=== PATIENT | female | born 1985 | race Caucasian/White ===

== ENCOUNTER 2024-03-30 02:33 | Emergency (ER) | payer OTHER ==
[~2024-03-30] VITALS: Ht 154.9 cm; Wt 76.7 kg
[2024-03-30] MEDS ORDERED: Dexamethasone Sodium Phospha 20 MG/5 ML VIAL IM ONE (03:05)
[2024-03-30] MEDS ORDERED: PREDNISONE50 MG PO (06:11)
== END 2024-03-30 06:51 | disposition home or self-care (01) ==
LOC: ED 02:33
DX: M06.862 Other specified rheumatoid arthritis, left knee (principal); M06.871 Other specified rheumatoid arthritis, right ankle and foot; Z88.6 Allergy status to analgesic agent

== ENCOUNTER 2024-05-11 21:44 | Emergency (ER) | payer OTHER ==
[~2024-05-11 21:44] MED LIST: PREDNISONE50 MG PO
[2024-05-11 23:09] LABS: BASO % 0.2 % (0.0-1.0); EOS # 0.1 10*3/uL (0.0-0.4); EOS % 0.4 % (1.0-4.0); HEMATOCRIT 42.5 % (37.0-47.0); MEAN CORPUSCULAR HGB 31.2 pg (27.0-31.0); MEAN CORPUSCULAR HGB CONC 33.9 g/dl (33.0-37.0); MEAN PLATELET VOLUME 10.2 fl (9.6-12.3); MONO # 0.5 10*3/uL (0.1-1.0); MONO % 4.2 % (3.0-9.0); NEUT # 9.9 10*3/uL (2.3-7.9); NEUT % 80.2 % (47.0-73.0); PLATELET COUNT AUTOMATED 338 10*3/uL (130-400); RED BLOOD COUNT 4.62 10*6/uL (4.10-5.10); RED CELL DISTRI WIDTH 11.8 % (0-14.5); WHITE BLOOD COUNT 12.4 10*3/uL (4.8-10.8)
[2024-05-11 23:27] LABS: ACT PARTIAL THROMBO TIME 25.1 SECONDS (20.0-32.1)
[2024-05-11 23:31] LABS: ALKALINE PHOSPHATASE 69 U/L (46-116); BUN 11 mg/dl (9-23); CHLORIDE 105 mmol/L (98-107); CPK 46 U/L (34-171); POTASSIUM 3.6 mmol/L (3.4-5.1); SGPT/ALT 18 U/L (5-49)
[2024-05-11 23:39] LABS: BILIRUBIN Negative (Negative); BLOOD Negative (Negative); CLARITY Clear (Clear); COLOR Yellow (Yellow); GLUCOSE Negative (Negative); KETONE Negative (Negative); LEUKO ESTERASE 1+ (Negative); NITRITE Negative (Negative); PH 6.5 (4.5-8.0); UROBILINOGEN 0.2 E.U./dl (0.0-1.0)
[2024-05-11 23:47] LABS: URINE AMPHETAMINES Negative (1000ng/ml); URINE BARBITURATES Negative (200ng/ml); URINE BENZODIAZEPINES Negative (200ng/ml); URINE CANNABINOIDS (THC) Positive (50ng/ml); URINE COCAINE Negative (300ng/ml); URINE METHADONE Negative (300ng/ml); URINE OPIATES Negative (300ng/ml); URINE PHENCYCLIDINE Negative (25ng/ml)
[2024-05-11 23:54] LABS: BACTERIA TRACE; EPITHELIAL CELLS 16-20
== END 2024-05-12 03:51 | disposition home or self-care (01) ==
LOC: ED 21:44
PROVIDERS: Emergency Medicine
DX: F12.929 Cannabis use, unspecified with intoxication, unspecified (principal); R73.9 Hyperglycemia, unspecified; R42 Dizziness and giddiness; M06.9 Rheumatoid arthritis, unspecified; Z88.6 Allergy status to analgesic agent; Z79.899 Other long term (current) drug therapy

== ENCOUNTER 2024-05-23 02:40 | Emergency (ER) | payer OTHER ==
[~2024-05-23] VITALS: Ht 157.4 cm; Wt 74.8 kg
[2024-05-23] MEDS ORDERED: Ketorolac Tromethamine 60 MG/2 ML VIAL IM ONE (03:35)
[2024-05-23] MEDS ORDERED: NAPROSYN500 MG PO (03:37)
== END 2024-05-23 03:46 | disposition home or self-care (01) ==
LOC: ED 02:40
DX: S60.022A Contusion of left index finger without damage to nail, initial encounter (principal); Z88.6 Allergy status to analgesic agent; Z79.899 Other long term (current) drug therapy; W23.0XXA Caught, crushed, jammed, or pinched between moving objects, initial encounter; Y93.89 Activity, other specified; Y92.810 Car as the place of occurrence of the external cause; Y99.8 Other external cause status

== ENCOUNTER 2024-08-17 17:43 | Emergency (ER) | payer OTHER ==
[~2024-08-17] VITALS: Ht 154.9 cm; Wt 73.5 kg
[~2024-08-17 17:43] MED LIST changes: +NAPROSYN500 MG PO
[2024-08-17] MEDS ORDERED: Dexamethasone Sodium Phospha 20 MG/5 ML VIAL IM ONE (18:00)
[2024-08-17] MEDS ORDERED: PREDNISONE20 M1 PO (18:03)
[2024-08-17] MEDS ORDERED: TRIAMCINOLONE430 GM TD (18:03)
== END 2024-08-17 18:08 | disposition home or self-care (01) ==
LOC: ED 17:43
DX: L25.9 Unspecified contact dermatitis, unspecified cause (principal); M06.9 Rheumatoid arthritis, unspecified; Z88.6 Allergy status to analgesic agent; Z79.899 Other long term (current) drug therapy